=== PATIENT | female | born 1960 | race Caucasian/White ===

== ENCOUNTER → 2017-01-27 | Day surgery (SDC) | payer OTHER ==
[~2017-01-27] MED LIST: LACTATED RINGER'S 1000 ML INJ 1,000 ML ONE; PROPOFOL 200 MG/20 ML AMP IV ONE
--- NOTE | 2017-01-27 07:50 | GIPROC ---
[facility] [address] [facility], [address] EGD PROCEDURE REPORT EXAM DATE: 01/27/2017 PATIENT NAME: Miley Pablo MR #: [id number] BIRTHDATE: 1960 ATTENDING: Darnell Wilson MD ORDER #: [id number] [employer] INS[employer] TIGHT: none STATUS: outpatient INDICATIONS: The patient is a 56 yr old female here for an EGD due to history of esophageal reflux PROCEDURE PERFORMED: EGD, diagnostic MEDICATIONS: None and Per Anesthesia. TOPICAL ANESTHETIC: none CONSENT: The patient understands the risks and benefits of the procedure and understands that these risks include, but are not limited to: sedation, allergic reaction, infection, perforation and/or bleeding. Alternative means of evaluation and treatment include, among others: physical exam, x-rays, and/or surgical intervention. The patient elects to proceed with this endoscopic procedure. medical equipment was checked for proper function. Hand hygiene and appropriate measures for infection prevention was taken. After the risks, benefits and alternatives of the procedure were thoroughly explained, Informed consent was verified, confirmed and timeout was successfully executed by the treatment team. The patient was anesthetized wiand the EG-[id number] ([id number]) endoscope was introduced through the mouth and advanced to the stomach body. There were large food particles present unable to visualize full stomach. Exam terminated due to improper prep. Pt had large food particles covering significant portion of stomach. We did not have a secure airway in place and could not procede safely with exam. The gastroscope was then slowly withdrawn and removed. Food in stomach. ADVERSE EVENTS: There were no complications. IMPRESSIONS: Food in stomach RECOMMENDATIONS: Will need repeat EGD PATIENT CONDITION: fair DISPOSITION: Home REPEAT EXAM: EGD Darnell Wilson MD eSigned: Darnell Wilson MD 01/27/2017 7:50 AM cc: Francisco Vallejo M.D.
== END | disposition home or self-care (01) ==
LOC: ESDC 06:19
PROVIDERS: ATTEND Surgery
DX: K21.9 Gastro-esophageal reflux disease without esophagitis (principal); E11.9 Type 2 diabetes mellitus without complications; Z79.4 Long term (current) use of insulin
CPT/HCPCS: 00740; 43235; 82948; J3010; J7120